=== PATIENT | female | born 1975 | race Caucasian/White ===

== ENCOUNTER 2017-06-19 14:31 | Emergency (ER) | payer MEDICAID ==
[~2017-06-19] VITALS: Ht 160 cm; Wt 72.8 kg
[2017-06-19 14:40] VITALS: Ht 160 cm; Wt 72.8 kg
[2017-06-19 15:36] LABS: microscopic required? YES; urine erythrocyte 1+ (NEGATIVE)
[2017-06-19 15:42] LABS: CARBON DIOXIDE 24.5 mmol/L (21-32); CHLORIDE SERUM 104 mmol/L (98-107); CREATININE SERUM 0.7 mg/dL (0.6-1.0); GFR1 > 60 mL/min; GLUCOSE SERUM 102 mg/dL (74-106); POTASSIUM SERUM 3.5 mmol/L (3.5-5.1); SODIUM SERUM 138 mmol/L (136-145)
[2017-06-19 15:43] LABS: BASOPHIL % 0.5 % (0-2); PLATELET COUNT 344 x10^3mcL (130-400); RED CELL DISTRIBUTION WIDTH 14.1 % (11.5-14.5)
[2017-06-19 15:47] LABS: ALBUMIN 4.1 g/dL (3.4-5.0); ALKALINE PHOSPHATASE 104 U/L (46-116); ALT/SGPT 20 U/L (14-59); AST/SGOT 15 U/L (15-37); BILIRUBIN TOTAL 0.3 mg/dL (0.20-1.00); LIPASE 133 IU/L (73-393)
[2017-06-19 15:49] LABS: TOTAL PROTEIN, SERUM 8.3 g/dL (6.4-8.2)
[2017-06-19 17:40] VITALS: BP 132/82
== END 2017-06-19 17:40 | disposition home or self-care (01) ==
LOC: ED 14:31
PROVIDERS: Emergency Medicine
DX: K59.00 Constipation, unspecified (principal); R33.9 Retention of urine, unspecified
CPT/HCPCS: J2270; J2405; J7030